=== PATIENT | male | born 1935 | race Caucasian/White ===

== ENCOUNTER 2024-05-04 01:34 | Emergency (ER) | payer MEDICARE, BC ==
[2024-05-04 01:42] VITALS: TEMP 98.2
--- NOTE | 2024-05-04 02:09 | XR ---
EXAMINATION TYPE: XR chest 1V portable DATE OF EXAM: 05/04/2024 COMPARISON: NONE HISTORY: Shortness of breath TECHNIQUE: Single frontal view of the chest is obtained. FINDINGS: There is cardiomegaly without overt thoracic aorta. There are small to moderate size righ t greater than left pleural effusions with associated bibasilar opacity favoring compressive atelecta sis. Degenerative change both shoulders greatest on the right is noted. IMPRESSION: Cardiomegaly with small to moderate-sized right greater than left pleural effusions. [facility], , 05/04/2024 2:07 AM
--- NOTE | 2024-05-04 09:16 | ED ---
General Adult HPI - General Chief complaint: Shortness of Breath Stated complaint: SOB Time Seen by Provider: 05/04/24 01:40 Source: EMS Mode of arrival: EMS - History of Present Illness Initial comments: Patient is an 88-year-old gentleman with a past medical history of congestive heart failure currently on hospice presenting for shortness of breath. History provided by patient, EMS and patient's daughter. Patient was at home tonight when his home oxygen concentrator stopped working causing him to run out of oxygen and become short of breath. Upon EMS arrival patient's O2 saturation was in the 60s. He was placed on 15 L nonrebreather mask and brought to the hospital. The patient denies any chest pain, recent fevers, cough. The patient's goals are to remain out of the hospital. Has chronic LE swelling. - Related Data Allergies Allergy/AdvReac Type Severity Reaction Status Date / Time No Known Allergies Allergy Verified 05/04/24 01:42 Review of Systems ROS Statement: Those systems with pertinent positive or pertinent negative responses have been documented in the HPI. ROS Other: All systems not noted in ROS Statement are negative. Past Medical History Past Medical History: Atrial Fibrillation, Heart Failure, GERD/Reflux, Hyperlipidemia, Hypertension History of Any Multi-Drug Resistant Organisms: None Reported Past Surgical History: No Surgical Hx Reported Past Psychological History: No Psychological Hx Reported Smoking Status: Former smoker General Exam - General Exam Comments Initial Comments: PE: CONSTITUTIONAL: Chronically ill-appearing, nonrebreather mask in place, awake and alert SKIN: Warm, dry, no jaundice, hives or petechiae EYES: Pupils are equally round, extraocular movements intact without nystagmus, clear conjunctiva, non-icteric sclera HENT: Normocephalic, atraumatic, moist mucus membranes, oropharynx clear NECK: , Full range of motion, normal appearance PULMONARY: Rhonchi bilateral lower lung iraheta, mild tachypnea, no accessory muscle use, no stridor or wheezes CARDIOVASCULAR: Regular rate, rhythm, normal S1 and S2. No appreciated murmurs, rubs or gallops. intact distal perfusion. Bilateral 2+ pitting edema GASTROINTESTINAL: Soft, non-tender, non-distended, no palpable masses, no rebound or guarding. No hepatosplenomegaly GENITOURINARY: MUSCULOSKELETAL: Extremities have no gross deformity, redness, or swelling. NEUROLOGIC:_a/o x 3, GCS 15, normal mentation and speech. Moves all extremities x 4 without motor or sensory deficit PSYCHIATRIC:_normal mood and affect, thought process is clear and linear Course Vital Signs 05/04/24 05/04/24 05/04/24 01:36 02:30 04:45 Temperature 98.2 F Pulse Rate 79 84 Respiratory 18 18 Rate Blood Pressure 99/53 96/55 O2 Sat by Pulse 94 L 99 98 Oximetry 05/04/24 05/04/24 10:44 11:31 Temperature Pulse Rate 67 72 Respiratory 20 Rate Blood Pressure 104/59 114/57 O2 Sat by Pulse 100 95 Oximetry Medical Decision Making - Medical Decision Making Was pt. sent in by a medical professional or institution (, PA, CAN FILLING ROOM SWEEPER, urgent care, hospital, or care home...) When possible be specific @ -No Did you speak to anyone other than the patient for history (EMS, parent, family, police, friend...)? What history was obtained from this source @ Pt's daughter Did you review nursing and triage notes (agree or disagree)? Why? @ -I reviewed and agree with nursing and triage notes Were old charts reviewed (outside hosp., previous admission, EMS record, old EKG, old radiological studies, urgent care reports/EKG's, care home records)? Report findings @ -None available for review Differential Diagnosis (chest pain, altered mental status, abdominal pain women, abdominal pain men, vaginal bleeding, weakness, fever, dyspnea, syncope, headache, dizziness, GI bleed, back pain, seizure, CVA, palpatations, mental health, musculoskeletal)? @ -Differential dx remains broad however top considerations include oxygen concentrator malfunction, pneumonia, CHF exacerbation, ACS, this is not all inclusive list EKG interpreted by me (3pts min.). @ -As above X-rays interpreted by me (1pt min.). @ -Bilateral pleural effusions CT interpreted by me (1pt min.). @ -None done U/S interpreted by me (1pt. min.). @ -None done What testing was considered but not performed or refused? (CT, X-rays, U/S, labs)? Why? @ Did consider EKG and labs however after goals of care discussion with pt and daughter, pt politely declined, he would not want to stay in the hospital regardless of results and obtaining EKG, labs would not change pt's disposition or provide benefit What meds were considered but not given or refused? Why? @ -None Did you discuss the management of the patient with other professionals (professionals i.e. , PA, CAN FILLING ROOM SWEEPER, lab, RT, psych nurse, mental health social worker, physician industrial, teacher, residential care officer, corrections caseworker)? Give summary @ -No Was smoking cessation discussed for >3mins.? @ -No Was critical care preformed (if so, how long)? @ -No Were there social determinants of health that impacted care today? How? (Homelessness, low income, unemployed, alcoholism, drug addiction, transportation, low edu. Level, literacy, decrease access to med. care, [place] [facility], rehab)? @ -No Was there de-escalation of care discussed even if they declined (Discuss DNR or withdrawal of care, Hospice)? @ Goals of care, continuation of hospice status What co-morbidities impacted this encounter? (DM, HTN, Smoking, COPD, CAD, Cancer, CVA, ARF, Chemo, Hep., AIDS, mental health diagnosis, sleep apnea, morbid obesity)? @ -None Was patient admitted / discharged? Hospital course, mention meds given and route, prescriptions, significant lab abnormalities, going to OR and other pertinent info. @ -Hospital course Pt is a pleasant 88-year-old gentleman with past medical history CHF on 4 L home oxygen presenting for shortness of breath that resulted after his home oxygen concentrator began malfunctioning. On arrival patient is mildly tachypneic, chronically ill-appearing and on a nonrebreather. Patient's daughter accompanies him. History initially limited as patient tachypneic and on nonrebreather. Ultimately pt able to be tranistioned to home O2 on NC. Discussed with patient and daughter goals of care, given patient's hospice status, ie regarding whether he wanted EKG, labs, XR, etc and if those results warranted hospital admission, would he want to be admitted to the hospital. Ultimately, CXR was obtained to assess for pneumonia, which would be treatable with outpatient antibiotcs, but otherwise, EKG, labs were declined as they were not in alignment with patient's goals of care. Ultimately given patient is currently in his home 4 liters oxygen, shortness of breath began after he was disconnected from his oxygen suspect this is the cause of his shortness of breath. XR negative for obvious consolidations, did show pleural effusions reflective of known CHF. Pt remained in ED until hospice could arrange from [facility] O2 concentrator to be set up at his home this morning. Patient discharged home for continued hospice care. Undiagnosed new problem with uncertain prognosis? @ -No Drug Therapy requiring intensive monitoring for toxicity (Heparin, Nitro, Insulin, Cardizem)? @ -No Were any procedures done? @ -No Diagnosis/symptom? @ Hypoxic respiratory failure in setting of chronic CHF Acute, or Chronic, or Acute on Chronic? @ Chronic Uncomplicated (without systemic symptoms) or Complicated (systemic symptoms)? @ -uncomplicated Side effects of treatment? @ -No Exacerbation, Progression, or Severe Exacerbation? @ -Progression Disposition Clinical Impression: Shortness of breath Disposition: HOME SELF-CARE Condition: Stable Is patient prescribed a controlled substance at d/c from ED?: No Referrals: Giorgio Galvez DO [Primary Care Provider] - 1-2 days
[2024-05-04 11:33] VITALS: BP 114/57; PULSE 72; RESP 20
== END 2024-05-04 11:33 | disposition home or self-care (01) ==
LOC: EC 01:34
CPT/HCPCS: 71045; 99285